=== PATIENT | female | born 1945 ===

== ENCOUNTER 2017-10-11 06:33 | Day surgery (SDC) | payer MEDICARE, MEDICAID ==
[2017-09-28 09:59] VITALS: BMI 31.3
[~2017-10-11 06:33] MED LIST: Ciprofloxacin 0.3% OPTH SOLN OD SCH; Flurbiprofen 0.03% Opht SOLN OD SCH; Lactated Ringer's 500 ML IV ONE; Phenylephrine 2.5% Opht Soln OD SCH; Tropicamide 1% Opht SOLUTION OD SCH; acetaZOLAMIDE 500 mg SR Cap PO ONE
[2017-10-11] MEDS ORDERED: Povidone Iodine Ophthalmic 5% Soln ONE (07:34)
[2017-10-11] MEDS ORDERED: Carbachol 0.01% IO ONE (07:34)
[2017-10-11] MEDS ORDERED: Hyaluronidase Human, Recombi 150 U/ML VIAL ONE (07:35)
[2017-10-11] MEDS ORDERED: Tetracaine 0.5% Ophth (OR ONLY) ONE (07:35)
[2017-10-11] MEDS ORDERED: Chondroitin/Hyaluronate Opth Syringe KIT (0.55 ml-0.5 ml) IO ONE (07:35)
[2017-10-11] MEDS ORDERED: Tobramycin/Dexamethasone OPHT OINT ONE (07:35)
[2017-10-11] MEDS ORDERED: Lidocaine 2% MPF (5 ml) Inj ONE (07:40)
[2017-10-11] MEDS ORDERED: Lactated Ringer's 500 ML IV ONE (07:50)
[2017-10-11] MEDS ORDERED: Midazolam 2 MG/2 ML VIAL ONE (09:57)
[2017-10-11] MEDS ORDERED: acetaZOLAMIDE 500 mg SR Cap PO ONE (10:58)
[2017-10-11 11:15] VITALS: O2SAT 100
[2017-10-11 11:40] VITALS: BP 127/60; PULSE 54; RESP 17; TEMP 97.7
--- NOTE | 2017-10-12 01:28 | OP ---
PROCEDURE DATE: 10/11/2017 PREOPERATIVE DIAGNOSIS: Matured cataract, right eye. POSTOPERATIVE DIAGNOSIS: Matured cataract, right eye. PROCEDURE: Phacoemulsification, right eye, insertion of posterior chamber implant. SURGEON: Polo Alvarado MD. CO-SURGEON: Nakul Pastor MD. ANESTHESIA TYPE: Local intravenous sedation. PROCEDURE: The patient was brought into the operating room, placed in supine position, prepped and draped in the usual fashion for ophthalmic surgery. Lid speculum was inserted, lids and exposing globe. A side-port incision was made superiorly and inferiorly with a disposable sharp blade. Anterior chamber was filled with Viscoat. A near clear corneal incision was made temporally with a 2.75-mm keratome. Capsulorrhexis was then performed with Utrata forceps. Hydrodissection carried out with balanced salt solution. Nucleus was phacoemulsified. Remaining cortical fragments were removed with a split irrigation and aspiration system. The capsular sac was filled with Provisc. A posterior chamber lens was then injected into the capsular sac and rotated into horizontal position. Provisc was aspirated out of the anterior chamber. The pupil was constricted with Miochol. The wound was found to be watertight. Topical Betadine, Timoptic, and TobraDex ointment and pressure patch were applied. The patient tolerated the procedure well. Polo Alvarado MD
== END 2017-10-11 11:48 | disposition home or self-care (01) ==
LOC: C.SDS 06:33
PROVIDERS: ATTEND Ophthalmology
DX: H25.091 Other age-related incipient cataract, right eye (principal)
CPT/HCPCS: 66984; J2250; J3010; J3470; J7120; V2632

== ENCOUNTER 2017-11-08 06:29 | Day surgery (SDC) | payer MEDICARE, MEDICAID ==
[2017-09-28 09:58] VITALS: BMI 31.3
[~2017-11-08 06:29] MED LIST changes: -Ciprofloxacin 0.3% OPTH SOLN OD SCH; +Ciprofloxacin 0.3% OPTH SOLN OS SCH; -Flurbiprofen 0.03% Opht SOLN OD SCH; +Flurbiprofen 0.03% Opht SOLN OS SCH; -Phenylephrine 2.5% Opht Soln OD SCH; +Phenylephrine 2.5% Opht Soln OS SCH; -Tropicamide 1% Opht SOLUTION OD SCH; +Tropicamide 1% Opht SOLUTION OS SCH
[2017-11-08] MEDS ORDERED: Lidocaine 2% MPF (5 ml) Inj ONE (07:33)
[2017-11-08] MEDS ORDERED: Carbachol 0.01% IO ONE ×2 (07:39→10:21)
[2017-11-08] MEDS ORDERED: Povidone Iodine Ophthalmic 5% Soln ONE (07:39)
[2017-11-08] MEDS ORDERED: Tetracaine 0.5% Ophth (OR ONLY) ONE (07:39)
[2017-11-08] MEDS ORDERED: Chondroitin/Hyaluronate Opth Syringe KIT (0.55 ml-0.5 ml) IO ONE (07:40)
[2017-11-08] MEDS ORDERED: Hyaluronidase Human, Recombi 150 U/ML VIAL ONE (07:40)
[2017-11-08] MEDS ORDERED: Lactated Ringer's 1,000 ML IV ONE (08:13)
[2017-11-08] MEDS ORDERED: Midazolam 2 MG/2 ML VIAL ONE (09:27)
[2017-11-08] MEDS: Tobramycin/Dexamethasone OPHT OINT ONE ×2 (09:56→10:25)
[2017-11-08] MEDS ORDERED: Chondroitin/Hyaluronate 40 mg/ml-30 mg/ml Ophth Syringe (0.5 ml) IO ONE ×3 (10:07→10:22)
[2017-11-08] MEDS ORDERED: acetaZOLAMIDE 500 mg SR Cap PO ONE (11:00)
[2017-11-08 11:19] VITALS: O2SAT 99
[2017-11-08 12:29] VITALS: BP 117/64; PULSE 60; RESP 15; TEMP 96.2
--- NOTE | 2017-11-08 22:33 | OP ---
PROCEDURE DATE: 11/08/2017 PREOPERATIVE DIAGNOSIS: Cataract, left eye. POSTOPERATIVE DIAGNOSIS: Cataract, left eye. OPERATIVE PROCEDURE: Phacoemulsification of left eye, insertion of posterior chamber implant and anterior vitrectomy of left eye. SURGEON: Polo Alvarado MD CO-SURGEON: Nakul Pastor MD TYPE OF ANESTHESIA: Local with IV sedation. DESCRIPTION OF PROCEDURE: The patient was brought into the operating room, placed in supine position, prepped and draped in the usual fashion for ophthalmic surgery. Lid speculum was inserted, lids and exposing globe. A side-port incision was made superiorly and inferiorly with a disposable sharp blade. The anterior chamber was filled with Viscoat. A near clear corneal incision was made temporally with a 2.4-mm keratome. Capsulorrhexis was performed with Utrata forceps. Hydrodissection carried out with balanced salt solution. The nucleus was then phacoemulsified. At that point, there was noted to be a tear in the posterior capsule. Anterior vitrectomy was then performed and remaining cortical fragments were then removed with a split irrigation and aspiration system. The posterior chamber was filled with Viscoat. A posterior chamber lens was then inserted in the anterior chamber into the ciliary sulcus. The Viscoat was aspirated out of the anterior chamber. Pupil was constricted with Miochol. The wounds were hydrated with balanced salt solution. A 10-0 Prolene suture was placed to the keratome incision, and the knot was buried. Topical Betadine, Timoptic and TobraDex ointment and pressure patch were applied. The patient tolerated the procedure well. oPlo Alvarado MD
== END 2017-11-08 11:36 | disposition home or self-care (01) ==
LOC: C.SDS 06:29
PROVIDERS: ATTEND Ophthalmology
DX: H25.12 Age-related nuclear cataract, left eye (principal)
CPT/HCPCS: 66984; J2250; J3010; J3470; J7120; V2632